=== PATIENT | female | born 1965 | race Caucasian/White ===

== ENCOUNTER 2025-04-18 13:06 | Emergency (ER) | payer OTHER, MEDICAID ==
[~2025-04-18] VITALS: Ht 152.4 cm; Wt 86.0 kg
[2025-04-18 13:10] VITALS: O2SAT 100
[2025-04-18] MEDS: IBUPROFEN 600MG TABLET PO ONE (15:35)
[2025-04-18] MEDS: METHOCARBAMOL 500MG TABLET PO ONE (15:35)
[2025-04-18] MEDS ORDERED: IBUP-1455 MT (16:56)
[2025-04-18 18:40] VITALS: BP 119/71; PULSE 60; RESP 16; TEMP 36.6; O2SAT 100
== END 2025-04-18 18:40 | disposition home or self-care (01) ==
LOC: ER 13:06
DX: S82.401A Unspecified fracture of shaft of right fibula, initial encounter for closed fracture (principal); E78.00 Pure hypercholesterolemia, unspecified; V89.2XXA Person injured in unspecified motor-vehicle accident, traffic, initial encounter; Y93.89 Activity, other specified; Y92.410 Unspecified street and highway as the place of occurrence of the external cause; Y99.8 Other external cause status
CPT/HCPCS: 99284; 29505; 73700; 73130; 73562; 73610; A6449